=== PATIENT | female | born 1980 | race Hispanic/Latino ===

== ENCOUNTER 2018-09-24 18:05 | Observation (INO) | payer OTHER ==
[~2018-09-24] VITALS: Ht 152.4 cm; Wt 85.0 kg
[2018-09-24 18:53] LABS: BILIRUBIN,URINE NEGATIVE (NEGATIVE); CLARITY,URINE CLEAR (CLEAR); COLOR,URINE YELLOW (YELLOW); KETONES,URINE NEGATIVE (NEGATIVE); LEUKOCYTE ESTERASE ,URINE NEGATIVE (NEGATIVE); NITRITE,URINE NEGATIVE (NEGATIVE); PROTEIN,URINE DIPSTICK NEGATIVE (NEGATIVE); URINE UROBILINOGEN 0.2 mg/dL (0.2 - 1)
[2018-09-24 19:06] LABS: BACTERIA,URINE FEW /HPF; EPITHELIAL CELLS,URINE MODERATE /LPF; RBC,URINE 0-5 /HPF (0-5)
[2018-09-24 19:09] LABS: PREGNANCY TEST, URINE NEGATIVE (NEGATIVE)
--- NOTE | 2018-09-24 19:17 | Diagnostic Imaging Report ---
CT BRAIN WO HISTORY: Head and neck pain COMPARISON: None. TECHNIQUE: Noncontrast axial scans were obtained from skull base to the vertex. Coronal and sagittal reconstructions obtained from the axial data. One or more of the following dose reduction techniques were used: Automated exposure control, adjustment of the mA and/or kV according to patient size, and/or utilization of iterative reconstruction technique. DISCUSSION: Scalp/Skull: Unremarkable. Brain sulci: Appropriate for patient's age. Ventricles: Normal in size and configuration. No hydrocephalus. Extra-axial spaces: No masses or fluid collections. Parenchyma: No abnormal densities. No mass, hemorrhage, or large vascular territory acute infarct. Dural sinuses: No abnormal densities. Sellar/Suprasellar region: Intact. Skull base: Intact. Incidental findings: None. IMPRESSION: No intracranial abnormalities. Signed by: Dr. Aashish Reinoso M.D. on 09/24/2018 7:13 PM
[2018-09-24 20:50] LABS: BASOPHILS # (AUTO) 0.1 (0.0-0.1); BASOPHILS % 0.8 % (0.0-1.0); EOSINOPHILS # (AUTO) 0.1 (0.0-0.4); EOSINOPHILS % 1.5 % (0.0-6.0); HEMATOCRIT 33.6 % (34.2-44.1); HEMOGLOBIN 11.4 g/dL (12.0-16.0); LYMPHOCYTES # (AUTO) 2.4 (1.0-3.2); MEAN CORPUSCULAR HEMOGLOBIN 28.4 pg (28-32); MEAN CORPUSCULAR HGB CONC 33.9 g/dL (31-35); MEAN CORPUSCULAR VOLUME 83.6 fL (81-99); MONOCYTES % 11.2 % (4.4-11.3); NEUTROPHILS # (AUTO) 4.5 (2.1-6.9); NEUTROPHILS % 51.8 % (38.7-80.0); PLATELET COUNT 340 x10e3/uL (140-360); RED BLOOD COUNT 4.02 x10e6/uL (3.6-5.1); RED CELL DISTRIBUTION WIDTH 12.3 % (11.7-14.4)
[2018-09-24] MEDS ORDERED: IBUPROFEN 600 MG TAB ONE (20:57)
[2018-09-24 21:11] LABS: ALANINE AMINOTRANSFERASE 139 IU/L (0-55); ALBUMIN 3.1 g/dL (3.5-5.0); ALBUMIN/GLOBULIN RATIO 0.8 (0.8-2.0); ALKALINE PHOSPHATASE 147 IU/L (40-150); ANION GAP 14.2 mmol/L (8-16); BLOOD UREA NITROGEN 5 mg/dL (7-26); BUN/CREATININE RATIO 8 (6-25); CALCIUM 9.3 mg/dL (8.4-10.2); CARBON DIOXIDE 25 mmol/L (22-29); CHLORIDE 103 mmol/L (98-107); CREATINE KINASE 24 IU/L (29-168); CREATININE, SERUM 0.61 mg/dL (0.57-1.11); EST GLOMERULAR FILTRATION RATE > 60 ML/MIN (60-); GLUCOSE 86 mg/dL (74-118); POTASSIUM 3.2 mmol/L (3.5-5.1); SODIUM 139 mmol/L (136-145)
[2018-09-24] MEDS ORDERED: KETOROLAC TROMETHAMINE 30 MG/ML VIAL IV ONE (21:20)
[2018-09-24 21:28] LABS: ANISOCYTOSIS SLIGHT; BAND NEUTROPHILS % (MANUAL) 2 %; EOSINOPHILS % (MANUAL) 3 % (0-7); LYMPHOCYTES % (MANUAL) 24 % (19-48); METAMYELOCYTES % (MANUAL) 1 % (0-0); MONOCYTES % (MANUAL) 5 % (3.4-9.0); MYELOCYTES % (MANUAL) 2 % (0-0); NEUTROPHILS % (MANUAL) 62 % (40-74); PLATELET ESTIMATE ADEQUATE; PLATELET MORPHOLOGY COMMENT NORMAL; RBC MORPHOLOGY COMMENT NORMAL
[2018-09-24] MEDS ORDERED: METOCLOPRAMIDE HCL 10 MG/2ML VIAL IV ONE (21:30)
[2018-09-24] MEDS ORDERED: SODIUM CHLORIDE 0.9% 1000ML 1,000 ML IV SCH (21:30)
[2018-09-24] MEDS ORDERED: IOPAMIDOL 370 MG/ML 200 ML INFUS..BTL INJ ONE (22:02)
[2018-09-24] MEDS ORDERED: SODIUM CHLORIDE 0.9% 50ML 50 ML ONE (22:02)
--- NOTE | 2018-09-24 22:05 | Diagnostic Imaging Report ---
EXAMINATION: CHEST SINGLE (PORTABLE) INDICATION: Short of breath COMPARISON: None FINDINGS: AP view TUBES and LINES: None. LUNGS: Lungs are well inflated. Lungs are clear. There is mild prominence of the central pulmonary vasculature, consistent with pulmonary venous congestion. PLEURA: No pleural effusion or pneumothorax. HEART AND MEDIASTINUM: Cardiac size is mildly enlarged. BONES AND SOFT TISSUES: No acute osseous lesion. Soft tissues are unremarkable. UPPER ABDOMEN: No free air under the diaphragm. IMPRESSION: Mild cardiomegaly and central pulmonary vascular congestion. Signed by: Ernesto Figueroa DO on 09/24/2018 10:02 PM
--- NOTE | 2018-09-24 22:28 | NUR ---
BOLUS INFUSED, SALINE LOCKED IV. STATES AMARAL GONE AFTER MEDICATIONS. AWAKE ALERT SKIN W/D RESP NONLAB. NAD NOTED.
--- NOTE | 2018-09-24 23:28 | Diagnostic Imaging Report ---
EXAM: CTA Chest WITH contrast (pulmonary embolism protocol) 09/24/2018 9:16 PM INDICATION: Short of breath COMPARISON: Chest radiograph 09/24/2018 TECHNIQUE: Chest was scanned utilizing a multidetector helical scanner from the lung apex through the level of the adrenal glands without administration of IV contrast. Coronal and sagittal reformations were obtained. Pulmonary embolism protocol was performed. IV CONTRAST: 100 mL of Isovue 370 COMPLICATIONS: None RADIATION DOSE: Total DLP: 456 mGy*cm Estimated effective dose: (DLP x 0.014 x size factor) mSv CTDIvol has been reviewed. It is below the limits set by the Radiation Protocol Committee (RPC). Dose modulation, iterative reconstruction, and/or weight based adjustment of the mA/kV was utilized to reduce the radiation dose to as low as reasonably achievable. FINDINGS: LINES/ TUBES: None. LUNGS AND AIRWAYS: No filling defect is identified to the segmental pulmonary arterial level. Scattered areas of subsegmental atelectasis. Mild interlobular septal thickening in the lower lungs Airways are normal. PLEURA: Small bilateral pleural effusions. No pneumothorax. HEART AND MEDIASTINUM: The thyroid gland is normal. No mediastinal, hilar or axillary lymphadenopathy. The heart is mildly enlarged. Trace pericardial effusion. Dilated main pulmonary artery up to 3.7 cm. UPPER ABDOMEN: Unremarkable. BONES: The visualized bony thorax is within normal limits. SOFT TISSUES: Unremarkable. IMPRESSION: Mild cardiomegaly, small bilateral pleural effusions, mild pulmonary interstitial edema. Mildly dilated main pulmonary artery can be seen in setting of pulmonary hypertension. Signed by: Ernesto Figueroa DO on 09/24/2018 11:24 PM
[2018-09-24] MEDS ORDERED: FUROSEMIDE INJ 10 MG/ML 4 ML VIAL IV ONE (23:30)
--- OUTSIDE RECORDS SUMMARY | 2018-09-24 23:49 | XMS REPORT ---
[email or web address] Address Unknown Phone Unavailable Care Team Providers Care Body Straightener Name Role Phone Angela KENNY Unavailable Unavailable Payers Payer Name Policy Type Policy Number Effective Date Expiration Date Problems This patient has no known problems. Allergies, Adverse Reactions, Alerts Allergy Name Allergy Type Status Severity Reaction(s) Onset Date Inactive Date Treating Clinician Comments No Known Allergies DA Active U 2018-09-20 00:00:00 No Known Allergies DA Active U 2015-05-05 00:00:00 Medications This patient has no known medications. Results Test Description Test Time Test Comments Text Results Atomic Results Result Comments CT CHEST W 2018-09-24 22:41:00 [place] [address] Patient Name: JOJO LAY MR #: [id number] : 1980 Age/Sex: 38/F Req #: [id number] Adm Physician: Ordered by: ALEXEY MARTINEZ MD Report #: [id number] Location: ER Room/Bed: Procedure: CT/CT CHEST W Exam Date: 09/24/18 Exam Time: 2203 REPORT STATUS: Signed EXAM: CTA Chest WITH contrast (pulmonary embolism protocol) 09/24/2018 9:16 PM INDICATION: Short of breath COMPARISON: Chest radiograph 09/24/2018 TECHNIQUE: Chest was scanned utilizing a multidetector helical scanner from the lung apex through the level of the adrenal glands without administration of IV contrast. Coronal and sagittal reformations were obtained. Pulmonary embolism protocol was performed. IV CONTRAST: 100 mL of Isovue 370 COMPLICATIONS: None RADIATION DOSE: Total DLP: 456 mGy*cm Estimated effective dose: (DLP x 0.014 x size factor) mSv CTDIvol has been reviewed. It is below the limits set by the Radiation Protocol Committee (RPC). Dose modulation, iterative reconstruction, and/or weight based adjustment of the mA/kV was utilized to reduce the radiation dose to as low as reasonably achievable. FINDINGS: LINES/ TUBES: None. LUNGS AND AIRWAYS: No filling defect is identified to the segmental pulmonary arterial level. Scattered areas of subsegmental atelect asis. Mild interlobular septal thickening in the lower lungs Airways are normal. PLEURA: Small bilateral pleural effusions. No pneumothorax. HEART AND MEDIASTINUM: The thyroid gland is normal. No mediastinal, hilar or axillary lymphadenopathy. The heart is mildly enlarged. Trace pericardial effusion. Dilated main pulmonary artery up to 3.7 cm. UPPER ABDOMEN: Unremarkable. BONES: The visualized bony thorax is within normal limits. SOFT TISSUES: Unremarkable. IMPRESSION: Mild cardiomegaly, small bilateral pleural effusions, mild pulmonary interstitial edema. Mildly dilated main pulmonary artery can be seen in setting of pulmonary hypertension. Signed by: Ernesto Mohr DO on 09/24/2018 11:24 PM Dictated By: ERNESTO MOHR DO 23 Transcribed By: SYED on 09/24/182323 COPY TO: ALEXEY MARTINEZ MD CHEST SINGLE (PORTABLE) 2018-09-24 22:01:00 [place] [address] Patient Name: JOJO LAY MR #: [id number] : 1980 Age/Sex: 38/F Req #: [id number] Adm Physician: Ordered by: ALEXEY MARTINEZ MD Report #: [id number] Location: ER Room/Bed: Procedure: [id number] DX/CHEST SINGLE (PORTABLE) Exam Date: 09/24/18 Exam Time: 2054 REPORT STATUS: Signed EXAMINATION: CHEST SINGLE (PORTABLE) [place]ON[place] CATION: Short of breath COMPARISON: None FINDINGS: AP view TUBES and LINES: None. LUNGS: Lungs are well inflated. Lungs are clear. There is mild prominence of the central pulmonary vasculature, consistent with pulmonary venous congestion. PLEURA: No pleural effusion or pneumothorax. HEART AND MEDIASTINUM: Cardiac size is mildly enlarged. BONES AND SOFT TISSUES: No acute osseous lesion. Soft tissues are unremarkable. UPPER ABDOMEN: No free air under the diaphragm. IMPRESSION: Mild cardiomegaly and central pulmonary vascular congestion. Signed by: Ernesto Mohr DO on 09/24/2018 10:02 PM Dictated By: ERNESTO MOHR DO 01 Transcribed By: SYED on 09/24/182201 COPY TO: ALEXEY MARTINEZ MD CT BRAIN WO 2018-09-24 19:10:00 [place] [address] Patient Name: JOJO LAY MR #: [id number] : 1980 Age/Sex: 38/F Req #: [id number] Adm Physician: Ordered by: AKASH KENNY MD Report #: [id number] Location: ER Room/Bed: Procedure: [id number] CT/CT BRAIN WO Exam Date: 09/24/18 Exam Time: 1832 REPORT STATUS: Signed CT BRAIN WO HISTORY: Head and neck pain COMPARISON: None. TECHNIQUE: Noncontrast axial scans were obtained from skull base to the vertex. Coronal and sagittal reconstructions obtained from the axial data. One or more of the following dose reduction techniques were used: Automated exposure control, adjustment of the mA and/or kV according to patient size, and/or utilization of iterative reconstruction technique. DISCUSSION: Scalp/Skull: Unremarkable. Brain sulci: Appropriate for patient's age. Ventricles: Normal in size and configuration. No hydrocephalus. Extra-axial spaces: No masses or fluid collections. Parenchyma: No abnormal densities. No mass, hemorrhage, or large vascular territory acute infarct. Dural sinuses: No abnormal densities. Sellar/Suprasellar region: Intact. Skull base: Intact. Incidental findings: None. IMPRESSION: No intracranial abnormalities. Signed by: Dr. Aashish Reinoso M.D. on 09/24/2018 7:13 PM Dictated By: AASHISH REINOSO MD 12 Transcribed By: SYED on 09/24/181912 COPY TO: AKASH KENNY MD ACUTE HEPATITIS PANEL 2018-09-24 03:07:00 AB HEPATITIS A IGM (test code=HAVMAB) Negative Negative AG HEPAT B SURF (test code=HBSAG) Negative Negative HEPATITIS B CORE ANTIBODY,IGM (test code=HBCMAB) Negative Negative AB HEPATITIS C (test code=HCVAB) <0.1 0.0-0.9 INFCE Result Units: s/co ratio Negative: < 0.8 Indeterminate: 0.8 - 0.9 Positive: > 0.9 The CDC recommends that a positive HCV antibody result be followed up with a HCV Nucleic Acid Amplification test (328784).Performed At: [address] [id number] Aayush Jarrell MD Ph:[phone] COMPREHENSIVE METABOLIC [id number] 05:44:00* Test Item Value Reference Range Comments SODIUM (test code=NA) 141 mmol/L 136-145 POTASSIUM (test code=K) 3.3 mmol/L 3.5-5.1 CHLORIDE (test code=CL) 111.0 mmol/L 98-107 CARBON DIOXIDE (test code=CO2) 21.0 mmol/L 21-32 ANION GAP (test code=GAP) 12.3 10-20 GLUCOSE (test code=GLU) 94 mg/dL 74-106 BLOOD UREA NITROGEN (test code=BUN) 6 mg/dL 7-18 GLOMERULAR FILTRATION RATE (test code=GFR) > 60 mL/min >=60 Estimated GFR by using Modified MDRD formula.Chronic kidney disease is defined as either kidney damageor GFR <60 mL/min/1.73 m2 for >3 months. CREATININE (test code=CREAT) 0.60 mg/dL 0.55-1.02 Note change in reference range due to change in reagent. BUN/CREATININE RATIO (test code=BUN/CREA) 10.4 10-20 TOTAL PROTEIN (test code=PROT) 6.5 gram/dL 6.4-8.2 ALBUMIN (test code=ALB) 2.5 g/dL 3.4-5.0 GLOBULIN (test code=GLOB) 4.0 gram/dL 2.7-4.2 ALBUMIN/GLOBULIN RATIO (test code=A/G) 0.6 0.75-1.50 CALCIUM (test code=CA) 8.0 mg/dL 8.5-10.1 BILIRUBIN TOTAL (test code=BILT) 0.40 mg/dL 0.0-1.0 SGOT/AST (test code=AST) 25 IUnit/L 15-37 SGPT/ALT (test code=ALT) 96 IUnit/L 12-78 ALKALINE PHOSPHATASE TOTAL (test code=ALKP) 142 IUnit/L 45-117 Note change in reference range due to change in reagent. COMPREHENSIVE METABOLIC [id number] 05:33:00* Test Item Value Reference Range Comments SODIUM (test code=NA) 141 mmol/L 136-145 POTASSIUM (test code=K) 3.3 mmol/L 3.5-5.1 CHLORIDE (test code=CL) 111.0 mmol/L 98-107 CARBON DIOXIDE (test code=CO2) mmol/L 21-32 ANION GAP (test code=GAP) 10-20 GLUCOSE (test code=GLU) mg/dL 74-106 BLOOD UREA NITROGEN (test code=BUN) mg/dL 7-18 GLOMERULAR FILTRATION RATE (test code=GFR) mL/min >=60 CREATININE (test code=CREAT) mg/dL 0.55-1.02 BUN/CREATININE RATIO (test code=BUN/CREA) 10-20 TOTAL PROTEIN (test code=PROT) gram/dL 6.4-8.2 ALBUMIN (test code=ALB) g/dL 3.4-5.0 GLOBULIN (test code=GLOB) gram/dL 2.7-4.2 ALBUMIN/GLOBULIN RATIO (test code=A/G) 0.75-1.50 CALCIUM (test code=CA) mg/dL 8.5-10.1 BILIRUBIN TOTAL (test code=BILT) mg/dL 0.0-1.0 SGOT/AST (test code=AST) IUnit/L 15-37 SGPT/ALT (test code=ALT) IUnit/L 12-78 ALKALINE PHOSPHATASE TOTAL (test code=ALKP) IUnit/L 45-117 CBC W/O [id number] 05:15:00* Test Item Value Reference Range Comments WHITE BLOOD CELL (test code=WBC) 14.3 K/mm3 4.5-12.5 RED BLOOD CELL (test code=RBC) 3.73 mill/mm3 3.7-5.2 HEMOGLOBIN (test code=HGB) 10.6 gram/dL 11.5-15.5 HEMATOCRIT (test code=HCT) 32.2 % 36.0-46.0 MEAN CELL VOLUME (test code=MCV) 86.3 fL 80-98 MEAN CELL HGB (test code=MCH) 28.4 picogram 27.0-33.0 MEAN CELL HGB CONCETRATION (test code=MCHC) 32.9 gram/dL 33.0-36.0 RED CELL DISTRIBUTION WIDTH (test code=RDW) 12.6 % 11.6-16.2 PLATELET COUNT (test code=PLT) 224 K/mm3 150-450 MEAN PLATELET VOLUME (test code=MPV) 10.2 fL 6.7-11.0 CBC W/O [id number] 05:26:00* Test Item Value Reference Range Comments WHITE BLOOD CELL (test code=WBC) 18.4 K/mm3 4.5-12.5 RED BLOOD CELL (test code=RBC) 3.79 mill/mm3 3.7-5.2 HEMOGLOBIN (test code=HGB) 10.9 gram/dL 11.5-15.5 RESULT VERIFIED BY REPEAT ANALYSIS HEMATOCRIT (test code=HCT) 33.5 % 36.0-46.0 MEAN CELL VOLUME (test code=MCV) 88.4 fL 80-98 MEAN CELL HGB (test code=MCH) 28.8 picogram 27.0-33.0 MEAN CELL HGB CONCETRATION (test code=MCHC) 32.5 gram/dL 33.0-36.0 RED CELL DISTRIBUTION WIDTH (test code=RDW) 12.9 % 11.6-16.2 PLATELET COUNT (test code=PLT) 192 K/mm3 150-450 RESULT VERIFIED BY REPEAT ANALYSIS MEAN PLATELET VOLUME (test code=MPV) 10.1 fL 6.7-11.0 BASIC METABOLIC [id number] 05:20:00* Test Item Value Reference Range Comments SODIUM (test code=NA) 142 mmol/L 136-145 POTASSIUM (test code=K) 3.7 mmol/L 3.5-5.1 CHLORIDE (test code=CL) 112.0 mmol/L 98-107 CARBON DIOXIDE (test code=CO2) 20.0 mmol/L 21-32 ANION GAP (test code=GAP) 13.7 10-20 GLUCOSE (test code=GLU) 89 mg/dL 74-106 BLOOD UREA NITROGEN (test code=BUN) 8 mg/dL 7-18 GLOMERULAR FILTRATION RATE (test code=GFR) > 60 mL/min >=60 Estimated GFR by using Modified MDRD formula.Chronic kidney disease is defined as either kidney damageor GFR <60 mL/min/1.73 m2 for >3 months. CREATININE (test code=CREAT) 0.60 mg/dL 0.55-1.02 Note change in reference range due to change in reagent. BUN/CREATININE RATIO (test code=BUN/CREA) 14.3 10-20 CALCIUM (test code=CA) 7.6 mg/dL 8.5-10.1 BASIC METABOLIC [id number] 05:04:00* Test Item Value Reference Range Comments SODIUM (test code=NA) 142 mmol/L 136-145 POTASSIUM (test code=K) 3.7 mmol/L 3.5-5.1 CHLORIDE (test code=CL) 112.0 mmol/L 98-107 CARBON DIOXIDE (test code=CO2) mmol/L 21-32 ANION GAP (test code=GAP) 10-20 GLUCOSE (test code=GLU) mg/dL 74-106 BLOOD UREA NITROGEN (test code=BUN) mg/dL 7-18 GLOMERULAR FILTRATION RATE (test code=GFR) mL/min >=60 CREATININE (test code=CREAT) mg/dL 0.55-1.02 BUN/CREATININE RATIO (test code=BUN/CREA) 10-20 CALCIUM (test code=CA) mg/dL 8.5-10.1 PROCALCITONIN (PCT)2018-09-20 22:17:00* Test Item Value Reference Range Comments PROCALCITONIN (PCT) (test code=PROCAL) 0.51 ng/ml Concentration Interpretation (ng/mL) <0.51 Sepsis is not likely. Local bacterial infection is possible. (LOW RISK for progression to Sepsis) 0.51 - 2.00 Sepsis is possible, but other conditions are known to elevate PCT as well. (MODERATE RISK for progression to Sepsis) > 2.00 Sepsis is likely, unless other causes are known. (HIGH RISK for progression to Severe Sepsis or Septic Shock) 10.00 High likelihood of Severe Sepsis or Septic or higher Shock. *Increased PCT levels may not always be related to systemic bacterial infection.*Low PCT levels do not automatically exclude the presence of bacterial infection.*All results should be interpreted taking into account the patients history. [id number] 22:03:00* Test Item Value Reference Range Comments GLYCOSYLATED HEMOGLOBIN (HA1C) (test code=GLYHGB) 4.7 % HbA1 4.8-6.0 ESTIMATED AVERAGE GLUCOSE (test code=EAG) 88 MG/DL - ABDOMEN [id number] 14:02:00 Name: JOJO BUTTERFIELD [facility] : 1980 Age/S: 38 / F [address] [facility] Unit #: [id number] Loc: [place] [address] Phys: Neal Hastings MD Acct: [id number] Dis Date: Status: ADM IN PHONE #: [phone] Exam Date: 09/20/2018 1345 FAX #: [phone] Reason: back pain elevated LFTs EXAMS: CPT CODE: [id number] US ABDOMEN LTD 10207 REASON FOR EXAM: back pain elevated LFTs EXAM ORDER DATE: 09/20/2018 1:09 PM Attending M.D.: Neal Hastings MD PROCEDURE: - ABDOMEN [facility] Technique: Grayscale and color Doppler images images of the right-upper quadrant of the abdomen. Comparison: CT of the abdomen and pelvis earlier today at 1:08 PM FINDINGS: Aorta and IVC: Patent and grossly normal in caliber. Liver: Size: 16.4 cm craniocaudally Parenchyma and contour: Smooth contour. Normal echogenicity. Cysts and/or masses: None. Intrahepatic bile ducts: No intrahepatic biliary ductal dilation Common bile duct: 3.3 mm in diameter. No echogenic filling defects in visualized duct. Gallbladder: Stones/sludge: No intraluminal stones or sludge. Wall: 2.7 mm in thickness. No discontinuity. No polyps. No pericholecystic fluid. No hyperemia. Sonographic Short's sign: Negative Portal vein: Portal vein caliber is within normal limits. Portal vein is patent with hepatopetal flow. Pancreas: Incompletely visualized. However the visualized portions are grossly within normal terry its. Right kidney: parenchyma echogenicity: Normal echogenic ity size: 11.6 x 4.9 x 5.5 cm stones: none cysts/masses: none PAGE 1 Signed Report (CONTINUED) Name: JOJO BUTTERFIELD [facility] : 1980 Age/S: 38 / F [address] [facility] Unit #: [id number] Loc: [place] [address] Phys: Becki Hastings MD Acct: [id number] Di s Date: Status: ADM IN PHONE #: Exam Date: 09/20/2018 1345 FAX #: Reason: back pain elevated LFTs EXAMS: CPT CODE: [id number] US ABDOMEN LTD 94520 <Continued> hydronephrosis: none Ascites/pleural effusions: None Incidental note is made of uterine fibroids. Urinary bladder appears sonographically unremarkable. IMPRESSION: Sonograp hically unremarkable abdomen. at 1402 Reported and signed by: Josiah ireland MD CC: Knigsley Stephens DO; Neal Hastings MD Technologist: Herminia Grewal RDMS Trnmab Date/Time: 09/20/2018 (1402) [email or web address] Orig P rint D/T: S: 09/20/2018 (8968) Probe: PAGE 2 Signed Report - US ABDOMEN LTD 2018-09-20 14:02:00 Name: GREERJOJO [facility] : 1980 Age/S: 38 / F [address] [facility] Unit #: [id number] Loc: [place] [address] Phys: Neal Hastings MD Acct: [id number] Dis Date: Status: REG ER PHONE #: [phone] Exam Date: 09/20/2018 1345 FAX #: [phone] Reason: back pain elevated LFTs EXAMS: CPT CODE: [id number] US ABDOMEN LTD 80780 REASON FOR EXAM: back pain elevated LFTs EXAM ORDER DATE: 09/20/2018 1:09 PM Attending Roberta: Neal Hastings MD PROCEDURE: - US ABDOMEN [facility] Technique: Grayscale and color Doppler images images of the right-upper quadrant of the abdomen. Comparison: CT of the abdomen and pelvis earlier today at 1:08 PM FINDINGS: Aorta and IVC: Patent and grossly normal in caliber. Liver: Size: 16.4 cm craniocaudally Parenchyma and contour: Smooth contour. Normal echogenicity. Cysts and/or masses: None. Intrahepatic bile ducts: No intrahepatic biliary ductal dilation Common bile duct: 3.3 mm in diameter. No echogenic filling defects in visualized duct. Gallbladder: Stones/sludge: No intraluminal stones or sludge. Wall: 2.7 mm in thickness. No discontinuity. No polyps. No pericholecystic fluid. No hyperemia. Sonographic Short's sign: Negative Portal vein: Portal vein caliber is within normal limits. Portal vein is patent with hepatopetal flow. Pancreas: Incompletely visualized. However the visualized portions are grossly within normal limits. Right kidney: parenchyma echogenicity: Normal echogenicity size: 11.6 x 4.9 x 5.5 cm stones: none cysts/masses: none PAGE 1 Signed Report (CONTINUED) Name: LAYJOJO WAGGONER [facility] : 1980 Age/S: 38 / F [address] [facility] Unit #: [id number] Loc: [place] [address] Phys: Neal Hastings MD Acct: [id number] Dis Date: Status: REG ER PHONE #: [phone] Exam Date: 09/20/2018 1345 FAX #: [phone] Reason: back pain elevated LFTs EXAMS: CPT CODE: [id number] ABDOMEN LTD 19782 <Continued> hydronephrosis: none Ascites/pleural effusions: None Incidental note is made of uterine fibroids. Urinary bladder appears sonographically unremarkable. IMPRESSION: Sonographically unremarkable abdomen. at 1402 Reported and signed by: Josiah Duarte MD CC: Kingsley Stephens DO; Neal Hastings MD Technologist: Herminia Grewal RDMS Trnscb Date/Time: 09/20/2018 (1402) [email or web address] Orig Print D/T: S: 09/20/2018 (1405) Probe: PAGE 2 Signed Report - CT ABD PELVIS W/[id number] 13:55:00 Name: JOJO BUTTERFIELD [facility] : 1980 Age/S: 38 / F [address] [facility] Unit #: [id number] Loc: [place] [address] Phys: Neal Hastings MD Acct: [id number] Dis Date: Status: ADM IN PHONE #: [phone] Exam Date: 09/20/2018 1323 FAX #: [phone] Reason: fever, flank pain EXAMS: CPT CODE: [id number] CT ABD PELVIS W/CONT 08604 REASON FOR EXAM: fever, flank pain EXAM ORDER DATE: 09/20/2018 12:29 PM Ordering M.D.: Neal Hastings MD PROCEDURE: - CT ABD PELVIS W/CONT contrast-enhanced axial CT images were acquired through the abdomen/pelvis at 5 mm intervals. Sagittal and coronal reformatted images were generated. Automated exposure control was utilized for this reduction. Phases of contrast: venous and delayed COMPARISON: None FINDINGS: Visualized thorax: There is mild subsegmental atelectasis in the lung bases. Hepatobiliary system: Normal Pancreas: Normal Spleen: Normal Adrenal glands: Normal Genitourinary system: Fibroid uterus. Urinary bladder is within normal limits. There is a focal hypodensity in the superior pole of the right kidney (2/42) and also in the anterior wall of the lower pole (2/57). There is focal stranding of the perinephric fat adjacent to this area. There is effacement of the medullary cortex interface at these lesions. Given the history of fever and flank pain these findings suggest pyelonephritis. No stone is seen in either kidney or ureter. Gastrointestinal tract and appendix: Moderate colonic stool burden. Sto mach and small bowel and appendix are within normal limits. Abdomi nal vascular structures: Normal. Peritoneum and retroperitoneum: N o free air or pathologic fluid collections. There are a few subcentimeter lymph nodes in the mesentery in the right hemiabdomen adjacent to the kidn ey which may be reactive. PAGE 1 Signed Report (CONTINUED) Name: JOJO BUTTERFIELD [facility] : 1980 Age/S: 38 / F [address] [facility] Unit #: [id number] Loc: [place] [address] Phys: Neal Hastings MD Acct: [id number] Dis Date: Status: ADM IN PHONE #: [phone] Exam Date: 09/20/2018 1323 FAX #: [phone] Reason: fever, flank pain EXAMS: CPT CODE: [id number] CT ABD PELVIS W/CONT 56765 < Continued> Musculoskeletal structures and abdominal wall: Mild degenerative changes are present in the lower thoracic spine. IMPRESSION: Findings of pyelonephritis involving the right kidney. No stones are seen in either kidney however. Fibroid uterus. at 1355 Reported and signed by: Josiah Duarte MD CC: Neal Hastings MD Technologist:Emerita Torres RT(R)(CT) CTDI: 9.29 DLP: 997.88 Trnscb Date/Time: 09/20/2018 (7269) [id number] Orig Print D/T: S: 09/20/2018 (2180) PAGE 2 Signed Report - CT ABD PELVIS W/[id number] 13:55:00 Name: JOJO BUTTERFIELD [facility] : 1980 Age/S: 38 / F [address] [facility] Unit #: [id number] Loc: [place] [address] Phys: Neal Hastings MD Acct: [id number] Dis Date: Status: REG ER PHONE #: [phone] Exam Date: 09/20/2018 1323 FAX #: [phone] Reason: fever, flank pain EXAMS: CPT CODE: [id number] CT ABD PELVIS W/CONT 08627 REASON FOR EXAM: fever, flank pain EXAM ORDER DATE: 09/20/2018 12:29 PM Ordering M.DMyesha: Neal Hastings MD PROCEDURE: - CT ABD PELVIS W/CONT contrast-enhanced axial CT images were acquired through the abdomen/pelvis at 5 mm intervals. Sagittal and coronal reformatted images were generated. Automated exposure control was utilized for this reduction. Phases of contrast: venous and delayed COMPARISON: None FINDINGS: Visualized thorax: There is mild subsegmental atelectasis in the lung bases. Hepatobiliary system: Normal Pancreas: Normal Spleen: Normal Adrenal glands: Normal Genitourinary system: Fibroid uterus. Urinary bladder is within normal limits. There is a focal hypodensity in the superior pole of the right kidney (2/42) and also in the anterior wall of the lower pole (2/57). There is focal stranding of the perinephric fat adjacent to this area. There is effacement of the medullary cortex interface at these lesions. Given the history of fever and flank pain these findings suggest pyelonephritis. No stone is seen in either kidney or ureter. Gastrointestinal tract and appendix: Moderate colonic stool burden. Sto mach and small bowel and appendix are within normal limits. Abdomi nal vascular structures: Normal. Peritoneum and retroperitoneum: N o free air or pathologic fluid collections. There are a few subcentimeter lymph nodes in the mesentery in the right hemiabdomen adjacent to the kidn ey which may be reactive. PAGE 1 Signed Report (CONTINUED) Name: [facility] : 1980 Age/S: 38 / F [address] [facility] Unit #: [id number] Loc: [place] [address] Phys: Neal Hastings MD Acct: [id number] Dis Date: Status: REG ER PHONE #: [phone] Exam Date: 09/20/2018 1323 FAX #: [phone] Reason: fever, flank pain EXAMS: CPT CODE: [id number] CT ABD PELVIS W/CONT 05322 < Continued> Musculoskeletal structures and abdominal wall: Mild degenerative changes are present in the lower thoracic spine. IMPRESSION: Findings of pyelonephritis involving the right kidney. No stones are seen in either kidney however. Fibroid uterus. at 1353 Reported and signed by: Josiah Duarte MD CC: Neal Hastings MD Technologist:Emerita Torres RT(R)(CT) CTDI: 9.29 DLP: 997.88 Trnscb Date/Time: 09/20/2018 (0645) [id number] Orig Print D/T: S: 09/20/2018 (3957) PAGE 2 Signed Report - CT ABD PELVIS W/[id number] 13:55:00 Name: JOJO [facility] : 1980 Age/S: 38 / F [address] [facility] Unit #: [id number] Loc: [place] [address] Phys: Neal Hastings MD Acct: [id number] Dis Date: Status: ADM IN PHONE #: [phone] Exam Date: 09/20/2018 1323 FAX #: [phone] Reason: fever, flank pain EXAMS: CPT CODE: [id number] CT ABD PELVIS W/CONT 17766 REASON FOR EXAM: fever, flank pain EXAM ORDER DATE: 09/20/2018 12:29 PM Ordering M.D.: Neal Hastings MD PROCEDURE: - CT ABD PELVIS W/CONT contrast-enhanced axial CT images were acquired through the abdomen/pelvis at 5 mm intervals. Sagittal and coronal reformatted images were generated. Automated exposure control was utilized for this reduction. Phases of contrast: venous and delayed COMPARISON: None FINDINGS: Visualized thorax: There is mild subsegmental atelectasis in the lung bases. Hepatobiliary system: Normal Pancreas: Normal Spleen: Normal Adrenal glands: Normal Genitourinary system: Fibroid uterus. Urinary bladder is within normal limits. There is a focal hypodensity in the superior pole of the right kidney (2/42) and also in the anterior wall of the lower pole (2/57). There is focal stranding of the perinephric fat adjacent to this area. There is effacement of the medullary cortex interface at these lesions. Given the history of fever and flank pain these findings suggest pyelonephritis. No stone is seen in either kidney or ureter. Gastrointestinal tract and appendix: Moderate colonic stool burden. Sto mach and small bowel and appendix are within normal limits. Abdomi nal vascular structures: Normal. Peritoneum and retroperitoneum: N o free air or pathologic fluid collections. There are a few subcentimeter lymph nodes in the mesentery in the right hemiabdomen adjacent to the kidn ey which may be reactive. PAGE 1 Signed Report (CONTINUED) [facility] 1980 Age/S: 38 / F [address] [facility] Unit #: [id number] Loc: [place] [address] Phys: Neal Hastings MD Acct: [id number] Dis Date: Status: ADM IN PHONE #: [phone] Exam Date: 09/20/2018 1323 FAX #: [phone] Reason: fever, flank pain EXAMS: CPT CODE: [id number] CT ABD PELVIS W/CONT 89626 < Continued> Musculoskeletal structures and abdominal wall: Mild degenerative changes are present in the lower thoracic spine. IMPRESSION: Findings of pyelonephritis involving the right kidney. No stones are seen in either kidney however. Fibroid uterus. at 1350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
--- NOTE | 2018-09-25 00:18 | NUR ---
pt placed on tele box 24
[2018-09-25 00:41] VITALS: BP 141/86
[2018-09-25] MEDS: CEPHALEXIN 500 MG CAP PO SCH ×3 (00:53→12:21)
[2018-09-25 01:01] VITALS: BP 141/86
[2018-09-25 01:03] VITALS: BP 141/86
[2018-09-25 04:41] VITALS: BP 119/84
[2018-09-25 07:37] LABS: BASOPHILS # (AUTO) 0.1 (0.0-0.1); BASOPHILS % 0.6 % (0.0-1.0); EOSINOPHILS # (AUTO) 0.2 (0.0-0.4); EOSINOPHILS % 2.6 % (0.0-6.0); HEMATOCRIT 32.3 % (34.2-44.1); HEMOGLOBIN 11.3 g/dL (12.0-16.0); LYMPHOCYTES # (AUTO) 2.2 (1.0-3.2); LYMPHOCYTES % 27.2 % (18.0-39.1); MEAN CORPUSCULAR HEMOGLOBIN 29.1 pg (28-32); MEAN CORPUSCULAR VOLUME 83.2 fL (81-99); MONOCYTES % 12.5 % (4.4-11.3); NEUTROPHILS # (AUTO) 4.2 (2.1-6.9); NEUTROPHILS % 51.6 % (38.7-80.0); PLATELET COUNT 323 x10e3/uL (140-360); RED BLOOD COUNT 3.88 x10e6/uL (3.6-5.1); RED CELL DISTRIBUTION WIDTH 12.4 % (11.7-14.4)
[2018-09-25 07:49] VITALS: BP 138/81
[2018-09-25 07:58] LABS: ANION GAP 9.7 mmol/L (8-16); BLOOD UREA NITROGEN 8 mg/dL (7-26); BUN/CREATININE RATIO 13 (6-25); CALCIUM 8.6 mg/dL (8.4-10.2); CARBON DIOXIDE 28 mmol/L (22-29); CHLORIDE 101 mmol/L (98-107); CREATININE, SERUM 0.62 mg/dL (0.57-1.11); EST GLOMERULAR FILTRATION RATE > 60 ML/MIN (60-); GLUCOSE 123 mg/dL (74-118); SODIUM 136 mmol/L (136-145)
[2018-09-25 08:09] LABS: CREATINE KINASE MB 0.3 ng/mL (0-5.0)
[2018-09-25 08:10] LABS: POTASSIUM 2.7 mmol/L (3.5-5.1)
[2018-09-25 08:13] VITALS: BP 138/81
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
[2018-09-25] MEDS ORDERED: POTASSIUM CHLORIDE 20 MEQ TAB CR PO STA ×2 (08:25→08:27)
[2018-09-25 08:26] LABS: LYMPHOCYTES % (MANUAL) 30 % (19-48); MONOCYTES % (MANUAL) 13 % (3.4-9.0); NEUTROPHILS % (MANUAL) 57 % (40-74); PLATELET ESTIMATE SLIGHTLY INCREASED
[2018-09-25 08:27] LABS: RBC MORPHOLOGY COMMENT NORMAL
[2018-09-25] MEDS ORDERED: FUROSEMIDE INJ 10 MG/ML 4 ML VIAL IV SCH (09:00)
[2018-09-25] MEDS ORDERED: POTASSIUM CHLORIDE 20 MEQ TAB CR PO ONE (12:00)
[2018-09-25] MEDS ORDERED: POTASSIUM CHLORIDE 20 MEQ TAB CR PO SCH (12:30)
[2018-09-25 15:13] LABS: ANION GAP 13.7 mmol/L (8-16); BLOOD UREA NITROGEN 8 mg/dL (7-26); BUN/CREATININE RATIO 14 (6-25); CALCIUM 9.2 mg/dL (8.4-10.2); CARBON DIOXIDE 25 mmol/L (22-29); CHLORIDE 101 mmol/L (98-107); CREATININE, SERUM 0.58 mg/dL (0.57-1.11); EST GLOMERULAR FILTRATION RATE > 60 ML/MIN (60-); GLUCOSE 102 mg/dL (74-118); POTASSIUM 3.7 mmol/L (3.5-5.1); SODIUM 136 mmol/L (136-145)
[2018-09-25 15:33] LABS: CREATINE KINASE MB 0.3 ng/mL (0-5.0)
== END 2018-09-25 17:10 | disposition home or self-care (01) ==
LOC: ER 18:05 → ERHOLD 23:35 → IMCU 09-25 00:35
PROVIDERS: ADMIT Internal Medicine Critical Care Medicine; ATTEND Internal Medicine Critical Care Medicine
DX: M54.2 Cervicalgia (principal); I50.21 Acute systolic (congestive) heart failure; R51 Headache; Z87.440 Personal history of urinary (tract) infections
CPT/HCPCS: 36415 ×2; 70450; 71045; 71260; 80048; 80053; 81001; 81025; 82550 ×2; 82553 ×2; 83880 ×2; 84484 ×2; 85025 ×2; 85379; 86021; 86039; 86140; 93306; 99284; G0378 ×2; J1885; J1940; J2765; J7030; Q9967

== ENCOUNTER 2018-12-17 19:55 | Emergency (ER) | payer OTHER ==
[~2018-12-17] VITALS: Ht 152.4 cm; Wt 84.8 kg
[2018-12-17 21:06] LABS: BILIRUBIN,URINE NEGATIVE (NEGATIVE); CLARITY,URINE CLEAR (CLEAR); COLOR,URINE YELLOW (YELLOW); KETONES,URINE NEGATIVE (NEGATIVE); LEUKOCYTE ESTERASE ,URINE NEGATIVE (NEGATIVE); NITRITE,URINE NEGATIVE (NEGATIVE); PROTEIN,URINE DIPSTICK NEGATIVE (NEGATIVE); URINE UROBILINOGEN 0.2 mg/dL (0.2 - 1)
[2018-12-17 21:12] LABS: PREGNANCY TEST, URINE NEGATIVE (NEGATIVE)
[2018-12-17 21:18] LABS: BACTERIA,URINE RARE /HPF; EPITHELIAL CELLS,URINE MODERATE /LPF
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
[2018-12-17] MEDS ORDERED: ROBAXIN-750750 MG PO (22:07)
[2018-12-17] MEDS ORDERED: ULTRAM50 MG PO (22:07)
[2018-12-17] MEDS ORDERED: SODIUM CHLORIDE 0.9% 50ML 50 ML ONE (22:09)
[2018-12-17] MEDS ORDERED: IOPAMIDOL 370 MG/ML 200 ML INFUS..BTL INJ ONE (22:10)
== END 2018-12-17 22:10 | disposition home or self-care (01) ==
LOC: ER 19:55
DX: R10.813 Right lower quadrant abdominal tenderness (principal); S30.1XXA Contusion of abdominal wall, initial encounter; V43.52XA Car driver injured in collision with other type car in traffic accident, initial encounter; Y92.488 Other paved roadways as the place of occurrence of the external cause
CPT/HCPCS: 74177; 81001; 81025; 99283; Q9967